=== PATIENT | female | born 1945 | race Caucasian/White ===

== ENCOUNTER → 2016-10-14 | Day surgery (SDC) | payer MEDICARE ==
[~2016-10-14] MED LIST: ACTO5TAB; ALBU17I INH; ALEN70TA PO; ALPH1INJ3 IV; BIOT1CHW PO; CALC500T35 PO; CETI10CH CHEW; CHERSYP2 PO; CLOT10TR SUCK-ON; COMB0.2S EACH EYE; DORZ2SOL EACH EYE; DUONEBS; ESTR0.62 VAGINAL; FEXO180 PO; FLUTI220I INH; FOLI1CAP7 PO; LACTATED RINGER'S 1000 ML INJ 1,000 ML ONE; LEVA500T33 PO; MONT10TA4 PO; MONT4CHW2; OMEG100010 PO; PROPOFOL 500 MG/50 ML BTL IV ONE; PROT40TA PO; RANI150T PO; UMEC1AER INH; VENTAER INH; VITA100T53; VITADRO3 PO; WOMETAB2 PO; Z.0.OXYGEN INH
== END | disposition home or self-care (01) ==
LOC: ESDC 09:41
PROVIDERS: ATTEND Internal Medicine Gastroenterology
DX: Z12.11 Encounter for screening for malignant neoplasm of colon (principal); Q27.33 Arteriovenous malformation of digestive system vessel
CPT/HCPCS: 00810; 45388; J3010; J7120

== ENCOUNTER → 2017-02-13 | Outpatient (CLI) | payer MEDICARE ==
[~2017-02-13] MED LIST changes: -ACTO5TAB; -ALBU17I INH; -CLOT10TR SUCK-ON; -FEXO180 PO; -LACTATED RINGER'S 1000 ML INJ 1,000 ML ONE; -LEVA500T33 PO; -MONT4CHW2; -PROPOFOL 500 MG/50 ML BTL IV ONE; -PROT40TA PO; -Z.0.OXYGEN INH
[2017-02-13 10:15] LABS: BASOPHIL % 0.2 % (0.0-2.0); EOSINOPHIL # 0.1 TH/MM3 (0-0.4); EOSINOPHIL % 1.4 % (0.0-4.0); HEMATOCRIT 37.6 % (35.0-46.0); HEMO FLAGS DIFF FINAL; LYMPH % 17.1 % (9.0-44.0); LYMPHOCYTE # 1.5 TH/MM3 (1.0-4.8); MEAN CELL VOLUME 92.5 FL (80.0-100.0); MEAN CORPUSCULAR HEMOGLOBIN 30.2 PG (27.0-34.0); MEAN CORPUSCULAR HGB CONC 32.6 % (32.0-36.0); NEUT % 71.3 % (16.0-70.0); PLATELET COUNT 173 TH/MM3 (150-450); RED BLOOD COUNT 4.07 MIL/MM3 (4.00-5.30); WHITE BLOOD COUNT 8.5 TH/MM3 (4.0-11.0)
[2017-02-13 10:55] LABS: ANION GAP 2 MEQ/L (5-15); AST (GOT) 20 U/L (15-37); BICARBONATE 32.1 MEQ/L (21.0-32.0); BLOOD UREA NITROGEN 12 MG/DL (7-18); CHLORIDE 104 MEQ/L (98-107); GLOMERULAR FILTRATION RATE 97 ML/MIN (>89); GLUCOSE,FASTING 92 MG/DL (74-99); POTASSIUM 3.7 MEQ/L (3.5-5.1); SODIUM (NA) 138 MEQ/L (136-145)
[2017-02-13 10:59] LABS: ALKALINE PHOSPHATASE 52 U/L (45-117); ALT (GPT) 24 U/L (10-53); TOTAL BILIRUBIN ADULT 0.5 MG/DL (0.2-1.0)
== END ==
LOC: CLAB 09:51
PROVIDERS: ATTEND Family Medicine
DX: J44.9 Chronic obstructive pulmonary disease, unspecified (principal); E88.01 Alpha-1-antitrypsin deficiency; M81.0 Age-related osteoporosis without current pathological fracture; J84.111 Idiopathic interstitial pneumonia, not otherwise specified
CPT/HCPCS: 36415; 80053; 85025

== ENCOUNTER → 2017-08-19 | Outpatient (CLI) | payer MEDICARE ==
[~2017-08-19] MED LIST changes: +CALC12502 PO; -CALC500T35 PO; -FLUTI220I INH; +FURO1TAB62 PO; +POTA10TA2 PO; +[UNRECOGNIZED DRUG - OTHER] NEB
[2017-08-19 07:50] LABS: POTASSIUM 4.6 MEQ/L (3.5-5.1)
[2017-08-19 07:54] LABS: BICARBONATE 31.9 MEQ/L (21.0-32.0)
== END ==
LOC: PLAB 07:15
PROVIDERS: ATTEND Family Medicine
DX: J44.9 Chronic obstructive pulmonary disease, unspecified (principal)
CPT/HCPCS: 36415; 80048

== ENCOUNTER → 2017-10-03 | Outpatient (CLI) | payer MEDICARE ==
[~2017-10-03] MED LIST changes: +APIX2.5T PO; +FURO1TAB60 PO; +POTA-163 PO
[2017-10-03 15:06] LABS: BICARBONATE 34.4 MEQ/L (21.0-32.0); CALCIUM 9.6 MG/DL (8.5-10.1); CREATININE 0.67 MG/DL (0.50-1.00)
== END ==
LOC: PLAB 11:53
PROVIDERS: ATTEND Internal Medicine
DX: J44.9 Chronic obstructive pulmonary disease, unspecified (principal); J43.9 Emphysema, unspecified
CPT/HCPCS: 36415; 80048

== ENCOUNTER → 2017-11-13 | Outpatient (CLI) | payer MEDICARE ==
[~2017-11-13] MED LIST changes: -APIX2.5T PO; -FURO1TAB62 PO; -POTA10TA2 PO
[2017-11-13 11:11] LABS: BICARBONATE 32.8 MEQ/L (21.0-32.0); CALCIUM 9.8 MG/DL (8.5-10.1); CREATININE 0.6 MG/DL (0.50-1.00)
== END ==
LOC: CLAB 10:26
PROVIDERS: ATTEND Internal Medicine
DX: I50.9 Heart failure, unspecified (principal)
CPT/HCPCS: 36415; 80048